=== PATIENT | female | born 1950 | race Caucasian/White ===

== ENCOUNTER → 2020-09-21 08:58 | Outpatient (CLI) | payer MEDICARE, SELFPAY ==
--- NOTE | ~2020-09-21 | CT_ITS ---
EXAMINATION: CT chest abdomen pelvis wo con EXAM DATE: 09/21/2020 09:22 INDICATION: R63.4 - Abnormal weight loss. Asthma. TECHNIQUE: Spiral CT of the chest, abdomen and pelvis was performed without contrast. Axial, hernandez l and sagittal images chest, abdomen and pelvis were reviewed. Coronal maximum intensity pixel image s of chest reviewed. The dose-length product (DLP) for this examination was 1143.46 mGy-cm. The exp osure was tailored according to patient size (auto mA exposure control), and iterative reconstruction (ASIR) was used as additional dose reduction technique. There is no prior study for comparison. FINDINGS: CHEST: Some scattered calcified and noncalcified nodules consistent with granulomas, up to about 3 m m in size. No suspicious pulmonary nodules. The ascending aorta measures 4.6 cm, mildly dilated. The re are no pleural or pericardial effusions. Tracheobronchial tree is patent. There is no mediasti nal, hilar or axillary lymphadenopathy. There is no pneumothorax. Heart normal in size. There i s mild coronary arterial calcification, arterial sclerosis. ABDOMEN PELVIS: The liver, spleen, adrenal glands and pancreas are unremarkable. Gallbladder is unre markable. No biliary obstruction. There is a punctate stone within each kidney. There is an exophyt ic 7 mm left renal hemorrhagic cyst. No hydronephrosis or ureteral stones. Calcifications in the pelv is are believed to be phleboliths. Hysterectomy versus atrophic uterus. The bladder is unremarkable . There is no retroperitoneal or pelvic lymphadenopathy. There is mild scattered arteriosclerotic disease. The appendix is not positively visualized. There is no pericecal inflammatory change to suggest appe ndicitis. The stomach and small bowel are unremarkable. There is expected amount of colonic stool. No free intraperitoneal gas. There are no osteoblastic or osteolytic lesions identified. IMPRESSION: 1. Mildly aneurysmal ascending aorta at 4.6 cm. 2. Punctate bilateral nephrolithiasis. 3. Lung granulomata. Reviewed, dictated and finalized at location A.
== END ==
PROVIDERS: PCP Internal Medicine; Visit Provider Internal Medicine
DX: R63.4 Abnormal weight loss (principal); I71.2 Thoracic aortic aneurysm, without rupture; N20.0 Calculus of kidney; J84.10 Pulmonary fibrosis, unspecified
CPT/HCPCS: 71250; 74176

== ENCOUNTER → 2020-11-24 10:50 | Outpatient (CLI) | payer MEDICARE, SELFPAY ==
--- NOTE | ~2020-11-24 | MR_ITS ---
EXAMINATION: MR shoulder RT wo con DATE: 11/24/2020 11:48 INDICATION: Right upper extremity pain TECHNIQUE: Magnetic resonance imaging (MRI) of the right shoulder was performed without intravenous c ontrast. Sequences included axial PD-weighted FS FSE, coronal oblique PD-weighted FS FSE, coronal obl ique T2-weighted FS FSE, sagittal PD-weighted FS FSE, and sagittal T1-weighted SE. COMPARISON: None. FINDINGS: Coracoacromial arch: The acromion undersurface is minimally curved in morphology (type I-II). There is mild thickening of the acromial side of the coracoacromial ligament. Moderate acromioclavicular osteoarthritis with smal l joint effusion. Rotator cuff: Complete tear of the supraspinatus and infraspinatus tendons along the superior and middle facet foot plates. 4.5 cm medial retraction of the torn supraspinatus tendon with the tear margin positioned lorna rick to the neck of the glenoid. Moderate fatty atrophy of the supraspinatus and infraspinatus muscle bellies. The teres minor tendon is normal. Mild to moderate subscapularis tendinopathy without discre te tear. Biceps tendon, glenoid labrum and glenohumeral cartilage: Moderate tendinopathy and likely longitudinal split tearing of the intra-articular and cephalad extra articular portion of the long head biceps tendon. Degenerative tearing of the superior to posterior superior glenoid labrum as well as of the anteroinferior labrum. Crescentic region of full/near full- thickness chondral ulceration along the anterior and superior margin of the glenoid with minimal unde rlying subarticular edema. Additional deep chondral ulceration along the apex of the humeral head wit h a couple additional tiny foci of subarticular edema. Fluid: Small glenohumeral joint effusion which extends through the full-thickness rotator cuff tear into the subacromial/subdeltoid bursa as well as with a small acromioclavicular joint effusion. No intra-mike cular loose osteochondral bodies. Small amount of fluid and synovitis in the long head biceps tendon sheath consistent with mild tenosynovitis. Bones/other: Normal marrow signal with no fracture or pathologic marrow replacing process. Mild cystic change at t he greater tuberosity. From anterior to posterior there are tears of the second and third of the 5 ma in deltoid tendon slips and partial tear of the deep portion of the adjacent muscle at the attenuated central portion of the proximal deltoid muscle. The tear occurs approximately 1.5 cm from the latera l acromial origin with approximately 2 cm distal retraction of the irregular tear margin. There is khanna rrounding muscular edema suggesting the tear is a relatively recent. IMPRESSION: 1. 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 2. Moderate glenohumeral osteoarthritis with labral degeneration. 3. Moderate tendinopathy and longitudinal split tearing of the long head biceps tendon. 4. Moderate acromioclavicular osteoarthritis. 5. Partial tear involving the deep aspect of the central component of the deltoid muscle and tendons with surrounding edema suggesting this is relatively recent.. Reviewed, dictated and finalized at location A. IMPRESSION: 1. Likely chronic full-thickness tear of the supraspinatus and infraspinatus te ndons with moderate secondary muscular fatty atrophy. 2. Moderate glenohumeral osteoarthritis with labral degeneration. 3. Moderate tendinopathy and longitudinal split tearing of the long head biceps tendon. 4. Moderate acromioclavicular osteoarthritis. 5. Partial tear involving the deep aspect of the central component of the delto id muscle and tendons with surrounding edema suggesting this is relatively
== END ==
PROVIDERS: PCP Internal Medicine; Visit Provider Physician Assistant Medical
DX: M79.621 Pain in right upper arm (principal); M75.101 Unspecified rotator cuff tear or rupture of right shoulder, not specified as traumatic; M19.011 Primary osteoarthritis, right shoulder; S46.811A Strain of other muscles, fascia and tendons at shoulder and upper arm level, right arm, initial encounter
CPT/HCPCS: 73221

== ENCOUNTER 2020-12-21 09:00 | Outpatient (RCR) | payer MEDICARE, SELFPAY ==
--- NOTE | 2020-11-23 11:56 | PTOPEVAL ---
INITIAL PHYSICAL THERAPY EVALUATION and PLAN OF CARE Thank you for referring Dipesh Russell to [facility].? Dipesh is scheduled to be seen for physical therapy? 2x/week for 4 weeks. Please review, sign, date and return this plan of care SERA. I agree with and certify that the following plan of care is medically necessary. Referring Physician Date Admitting Provider: Attending Provider: Ricardo López, MD Referring Provider: *PT Outpatient Evaluation Start: 11/23/20 10:24 Freq: Status: Active Protocol: Document 11/23/20 10:15 MAI (Rec: 11/23/20 11:43 MAI [id number]) Therapy Assessment Status Assessment Status Assessment Status Evaluation Outpatient Past Medical History Past Medical History Source of Past Medical History Patient Gastrointestinal History Hx Appendectomy Yes: 1969' Hx Cholecystectomy Yes: Musculoskeletal History Hx Arthritis Yes Endocrine History Hx Hypothyroidism Yes Hx Systemic Lupus Erythematosus Yes: 2017 Evaluation Information Problem Diagnosis R UE pain, R shoulder pain Onset ~ 3 wks Subjective Information Dipesh reports that she began Query Text:As Reported By Patient/ to have R shoulder pain - Family thought it was a flare up of her lupus. Wasn't able to get into rheumatology MD - came to Dr. López's office - received prednisone - then returned next week due to continuation of pain - had X ray - was told she had a tear. To have MRI tomorrow. Sleeping - lies on L side - uses pillow under R UE. Stiff in mornings - better after shower. Using ice on R shoulder. Working 2 days/wk - [employer] - avoiding lifting. 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 Home Meds Must Be Re-entered With Each Visit. Home Setting Home Type House,Single Level Environmental Barriers Ramp Living Situation Alone Comments Additional Prior Level of Function recreation - travel, going out Comments
--- NOTE | 2020-12-23 09:29 | PCPTNOTE ---
Patient cancelled scheduled appointment this date due to having to work. She cancelled this appointment 12/21/20.
--- NOTE | 2020-12-28 09:18 | PCPTNOTE ---
Patient called & cancelled scheduled appointment today and Saturday due to brother being place on hospice.
--- NOTE | 2021-01-16 09:22 | PCPTNOTE ---
PHYSICAL THERAPY DISCHARGE SUMMARY Admitting Provider: Attending Provider: Ricardo López, Patient:Dipesh Russell Date of :1950 Dipesh needed to cancel her last 2 appointments due to her brother going onto hospice. Follow up phone call was made today and she states that she is doing fine. Reinforced to her to continue with ROM activities to her R shoulder to maintain full motion - she was independent and compliant with her HEP. She was seen for 6 visits and did reach goals set. Thank you for referring Dipesh to [facility]. Please review, sign, date and return this discharge summary SERA. I have been updated about Dipesh's current status and I agree with discharge from the above service at this time. Referring Physician Date
== END 2021-01-16 15:59 | disposition home or self-care (01) ==
LOC: ANHHIPT 09:00
PROVIDERS: PCP Internal Medicine; Visit Provider Internal Medicine
DX: M79.604 Pain in right leg (principal); M25.511 Pain in right shoulder
CPT/HCPCS: 97110; 97140; 97162

== ENCOUNTER 2023-01-30 11:58 | Outpatient (CLI) | payer MEDICARE, SELFPAY ==
[2023-01-30 12:44] LABS: Hematocrit 39.5 % (37.0-47.0); Hemoglobin 12.7 g/dL (12.0-15.0); Mean Corpuscular HGB Conc 32.2 g/dl (32-36); Mean Corpuscular Hemoglobin 32.7 pg (26-34); Mean Corpuscular Volume 101.8 fl (80-100); Mean Platelet Volume 10.6 fl (7.4-10.4); Platelet Count Result 192 k/mm3 (150-375); Red Blood Count 3.88 M/mm3 (4.2-5.4); Red Cell Distribution Width 14.3 % (11.5-14.5); White Blood Count 4.4 K/mm3 (4.5-10.0)
[2023-01-30 12:48] LABS: Appearance Urine Clear (Clear); Bacteria Urine None Seen /hpf; Bilirubin Urine Negative (Negative); Blood Urine Negative (Negative); Color Urine Yellow (Yellow); Glucose Urine UA Negative (Negative); Ketones Urine Negative (Negative); Leukocyte Esterase Ur Trace LEU/UL (Negative); Nitrate Urine Negative (Negative); Non Pathogenic Casts 0-2; Protein Urine Negative (Negative); RBC Urine 0-2 /hpf (0-2); Specific Grav Ur 1.012 (1.001-1.035); Squamous Epithelial Cell Urine None seen /hpf (Few); WBC Urine 0-5 /hpf; pH Urine 6.5 (5.0-9.0)
[2023-01-30 12:54] LABS: Add Urine Microscopic? YES
[2023-01-30 13:03] LABS: Alanine Aminotransferase 18 U/L (6-35); Albumin Level 4.1 g/dL (3.5-5.1); Alkaline Phosphatase 67 U/L (38-126); Anion Gap 8 mmol/L (8-16); Aspartate Amino Transferase 26 U/L (14-36); Bilirubin,Total 0.7 mg/dL (0.2-1.3); Blood Urea Nitrogen 19 mg/dL (7-17); CRP < 0.5 mg/dL (<1.0); Calcium 8.8 mg/dL (8.4-10.2); Carbon Dioxide 22 mmol/L (22-30); Chloride 111 mmol/L (98-107); Estimated Glomerular Filt Rate > 60; Glucose 121 mg/dL (65-110); Sodium 141 mmol/L (137-145)
[2023-01-30 13:17] LABS: Erythrocyte Sedimentation Rate 15 mm/hr (0-20)
== END 2023-01-30 11:59 | disposition home or self-care (01) ==
LOC: ANHLAB 12:03
PROVIDERS: PCP Physician Assistant Medical; Visit Provider Internal Medicine
DX: M32.9 Systemic lupus erythematosus, unspecified (principal); M19.90 Unspecified osteoarthritis, unspecified site; R89.9 Unspecified abnormal finding in specimens from other organs, systems and tissues
CPT/HCPCS: 36415; 80053; 81001; 85027; 85652; 86140; 96365; 96375; 99202; A9270; G0463; J0491; J1200; J2930

== ENCOUNTER 2023-03-27 11:05 | Outpatient (CLI) | payer MEDICARE, SELFPAY ==
[2023-03-27 11:40] LABS: Hematocrit 41.1 % (37.0-47.0); Hemoglobin 13.4 g/dL (12.0-15.0); Mean Corpuscular HGB Conc 32.6 g/dl (32-36); Mean Corpuscular Hemoglobin 32.6 pg (26-34); Mean Platelet Volume 10.3 fl (7.4-10.4); Platelet Count Result 207 k/mm3 (150-375); Red Blood Count 4.11 M/mm3 (4.2-5.4); Red Cell Distribution Width 14.4 % (11.5-14.5); White Blood Count 5.6 K/mm3 (4.5-10.0)
[2023-03-27 11:43] LABS: Appearance Urine Clear (Clear); Bilirubin Urine Negative (Negative); Blood Urine Negative (Negative); Color Urine Yellow (Yellow); Glucose Urine UA Negative (Negative); Ketones Urine Negative (Negative); Leukocyte Esterase Ur Negative LEU/UL (Negative); Nitrate Urine Negative (Negative); Protein Urine Negative (Negative); Specific Grav Ur 1.018 (1.001-1.035)
[2023-03-27 11:45] LABS: Add Urine Microscopic? NO
[2023-03-27 11:51] LABS: Alanine Aminotransferase 16 U/L (6-35); Albumin Level 4.1 g/dL (3.5-5.1); Alkaline Phosphatase 63 U/L (38-126); Anion Gap 6 mmol/L (8-16); Aspartate Amino Transferase 24 U/L (14-36); Bilirubin,Total 0.6 mg/dL (0.2-1.3); Blood Urea Nitrogen 26 mg/dL (7-17); Calcium 9.1 mg/dL (8.4-10.2); Carbon Dioxide 20 mmol/L (22-30); Chloride 110 mmol/L (98-107); Estimated Glomerular Filt Rate > 60; Glucose 76 mg/dL (65-110); Potassium 3.8 mmol/L (3.4-5.0); Sodium 136 mmol/L (137-145)
[2023-03-27 14:21] LABS: Erythrocyte Sedimentation Rate 8 mm/hr (0-20)
[2023-03-27 21:19] LABS: Hepatitis B Surface Antigen Negative (Negative)
[2023-03-29 13:29] LABS: NIL 0.05 IU/mL; Quantiferon TB Plus, 1T NEGATIVE (NEGATIVE); TB1-NIL 0.01 IU/mL; TB2-NIL 0.05 IU/mL
== END 2023-03-27 11:06 | disposition home or self-care (01) ==
LOC: ANHLAB 11:10
PROVIDERS: PCP Physician Assistant Medical; Visit Provider Internal Medicine
DX: M32.9 Systemic lupus erythematosus, unspecified (principal)
CPT/HCPCS: 36415; 80053; 81003; 85027; 85652; 86480; 87340

== ENCOUNTER 2023-06-05 13:07 | Outpatient (CLI) | payer MEDICARE, SELFPAY ==
[2023-06-05 13:38] LABS: Hematocrit 41.5 % (37.0-47.0); Hemoglobin 13.1 g/dL (12.0-15.0); Mean Corpuscular HGB Conc 31.6 g/dl (32-36); Mean Corpuscular Hemoglobin 32.8 pg (26-34); Mean Platelet Volume 10.3 fl (7.4-10.4); Platelet Count Result 215 k/mm3 (150-375); Red Blood Count 3.99 M/mm3 (4.2-5.4); White Blood Count 4.7 K/mm3 (4.5-10.0)
[2023-06-05 13:44] LABS: Appearance Urine Clear (Clear); Bacteria Urine None Seen /hpf; Bilirubin Urine Negative (Negative); Blood Urine Negative (Negative); Color Urine Yellow (Yellow); Glucose Urine UA Negative (Negative); Ketones Urine Negative (Negative); Leukocyte Esterase Ur Negative LEU/UL (Negative); Nitrate Urine Negative (Negative); Non Pathogenic Casts 0-2; Protein Urine Trace mg/dL (Negative); RBC Urine 0-2 /hpf (0-2); Specific Grav Ur 1.021 (1.001-1.035); Squamous Epithelial Cell Urine None seen /hpf (Few); WBC Urine 0-5 /hpf; pH Urine 5.5 (5.0-9.0)
[2023-06-05 13:49] LABS: Add Urine Microscopic? YES
[2023-06-05 13:51] LABS: Alanine Aminotransferase 16 U/L (6-35); Albumin Level 4.1 g/dL (3.5-5.1); Alkaline Phosphatase 72 U/L (38-126); Anion Gap 8 mmol/L (8-16); Aspartate Amino Transferase 26 U/L (14-36); Bilirubin,Total 0.9 mg/dL (0.2-1.3); Blood Urea Nitrogen 19 mg/dL (7-17); CRP < 0.5 mg/dL (<1.0); Carbon Dioxide 24 mmol/L (22-30); Chloride 104 mmol/L (98-107); Estimated Glomerular Filt Rate > 60; Glucose 97 mg/dL (65-110); Potassium 3.8 mmol/L (3.4-5.0); Sodium 136 mmol/L (137-145)
[2023-06-05 14:45] LABS: Erythrocyte Sedimentation Rate 13 mm/hr (0-20)
== END 2023-06-05 13:08 | disposition home or self-care (01) ==
PROVIDERS: PCP Physician Assistant Medical; Visit Provider Internal Medicine
DX: M32.9 Systemic lupus erythematosus, unspecified (principal); M19.90 Unspecified osteoarthritis, unspecified site; R89.9 Unspecified abnormal finding in specimens from other organs, systems and tissues
CPT/HCPCS: 36415; 80053; 81001; 85027; 85652; 86140; 96365; 96375; 99212; A9270; G0463; J0491; J2930

== ENCOUNTER 2023-08-01 12:19 | Outpatient (CLI) | payer MEDICARE, SELFPAY ==
[2023-08-01 13:11] LABS: Hematocrit 42.7 % (37.0-47.0); Hemoglobin 13.5 g/dL (12.0-15.0); Mean Corpuscular HGB Conc 31.6 g/dl (32-36); Mean Corpuscular Hemoglobin 32.2 pg (26-34); Mean Corpuscular Volume 101.9 fl (80-100); Mean Platelet Volume 10.9 fl (7.4-10.4); Platelet Count Result 218 k/mm3 (150-375); Red Blood Count 4.19 M/mm3 (4.2-5.4); Red Cell Distribution Width 14.7 % (11.5-14.5); White Blood Count 4.9 K/mm3 (4.5-10.0)
[2023-08-01 13:13] LABS: Appearance Urine Clear (Clear); Bilirubin Urine Negative (Negative); Blood Urine Negative (Negative); Color Urine Yellow (Yellow); Glucose Urine UA Negative (Negative); Ketones Urine Negative (Negative); Leukocyte Esterase Ur Negative LEU/UL (Negative); Nitrate Urine Negative (Negative); Protein Urine Negative (Negative); Specific Grav Ur 1.013 (1.001-1.035); pH Urine 6.5 (5.0-9.0)
[2023-08-01 13:20] LABS: Add Urine Microscopic? NO
[2023-08-01 13:23] LABS: Alanine Aminotransferase 17 U/L (6-35); Albumin Level 4.3 g/dL (3.5-5.1); Alkaline Phosphatase 83 U/L (38-126); Anion Gap 6 mmol/L (8-16); Aspartate Amino Transferase 28 U/L (14-36); Bilirubin,Total 0.7 mg/dL (0.2-1.3); Blood Urea Nitrogen 14 mg/dL (7-17); Calcium 9.3 mg/dL (8.4-10.2); Carbon Dioxide 27 mmol/L (22-30); Chloride 106 mmol/L (98-107); Estimated Glomerular Filt Rate > 60; Glucose 95 mg/dL (65-110); Potassium 3.6 mmol/L (3.4-5.0); Sodium 139 mmol/L (137-145)
[2023-08-01 13:49] LABS: Erythrocyte Sedimentation Rate 13 mm/hr (0-20)
== END 2023-08-01 12:20 | disposition home or self-care (01) ==
PROVIDERS: PCP Physician Assistant Medical; Visit Provider Internal Medicine
DX: M32.9 Systemic lupus erythematosus, unspecified (principal)
CPT/HCPCS: 36415; 80053; 81003; 85027; 85652; 96365; 96375; 99212; A9270; G0463; J0491; J2930

== ENCOUNTER 2023-09-26 12:34 | Outpatient (CLI) | payer MEDICARE, SELFPAY ==
[2023-09-26 13:05] LABS: Hematocrit 41.8 % (37.0-47.0); Hemoglobin 13.4 g/dL (12.0-15.0); Mean Corpuscular HGB Conc 32.1 g/dl (32-36); Mean Corpuscular Hemoglobin 32.8 pg (26-34); Mean Corpuscular Volume 102.2 fl (80-100); Platelet Count Result 210 k/mm3 (150-375); Red Blood Count 4.09 M/mm3 (4.2-5.4); Red Cell Distribution Width 15.4 % (11.5-14.5); White Blood Count 4.8 K/mm3 (4.5-10.0)
[2023-09-26 13:12] LABS: Appearance Urine Clear (Clear); Bacteria Urine None Seen /hpf; Bilirubin Urine Negative (Negative); Blood Urine Negative (Negative); Color Urine Yellow (Yellow); Glucose Urine UA Negative (Negative); Ketones Urine Negative (Negative); Leukocyte Esterase Ur Trace LEU/UL (Negative); Nitrate Urine Negative (Negative); Non Pathogenic Casts 0-2; Protein Urine Negative (Negative); RBC Urine 0-2 /hpf (0-2); Specific Grav Ur 1.015 (1.001-1.035); Squamous Epithelial Cell Urine None Seen /hpf (Few); WBC Urine 0-5 /hpf (0-3); pH Urine 6.5 (5.0-9.0)
[2023-09-26 13:18] LABS: Add Urine Microscopic? YES
[2023-09-26 13:30] LABS: Alanine Aminotransferase 15 U/L (6-35); Albumin Level 4.2 g/dL (3.5-5.1); Alkaline Phosphatase 82 U/L (38-126); Anion Gap 6 mmol/L (4-12); Aspartate Amino Transferase 26 U/L (14-36); Bilirubin,Total 0.6 mg/dL (0.2-1.3); Blood Urea Nitrogen 20 mg/dL (7-17); CRP < 0.5 mg/dL (<1.0); Calcium 9.1 mg/dL (8.4-10.2); Carbon Dioxide 23 mmol/L (22-30); Chloride 111 mmol/L (98-107); Estimated Glomerular Filt Rate > 60; Glucose 105 mg/dL (65-110); Sodium 140 mmol/L (137-145)
[2023-09-26 13:42] LABS: Erythrocyte Sedimentation Rate 9 mm/hr (0-20)
== END 2023-09-26 12:35 | disposition home or self-care (01) ==
PROVIDERS: PCP Physician Assistant Medical; Visit Provider Internal Medicine
DX: M19.90 Unspecified osteoarthritis, unspecified site (principal); M32.9 Systemic lupus erythematosus, unspecified
CPT/HCPCS: 36415; 80053; 81001; 85027; 85652; 86140; 96365; 96375; 99212; A9270; G0463; J0491; J2919

== ENCOUNTER 2024-05-28 09:26 | Emergency (ER) | payer MEDICARE, SELFPAY ==
[2024-05-28 09:37] VITALS: BP 151/89; PULSE 76; RESP 20; TEMP 36.2; O2SAT 100
--- NOTE | 2024-05-28 09:37 | ED.FEMALEGU ---
HPI - Female Genitourinary General Chief complaint: Urogenital-Female Stated complaint: uti symptoms Time Seen by Provider: 05/28/24 09:37 Source: patient, RN notes reviewed and old records reviewed Mode of arrival: ambulatory Limitations: no limitations History of Present Illness HPI Narrative: patient presents with complaints of 3 days of urinary hesitancy. She denies any fever, chills, sweats. She denies any injury or trauma. She denies any outright dysuria, but states she feels as though she has to urinate and then has difficulty doing so. She voices no other concerns or complaints today Related Data Home Medications ?Medication ?Instructions ?Recorded ?Confirmed ?Last Taken ?Type folic acid 1 mg tablet 1 mg PO DAILY 03/11/24 05/15/24 Unknown History methotrexate sodium 2.5 mg tablet 2.5 mg PO WEEKLY 03/11/24 05/15/24 Unknown History Allergies Allergy/AdvReac Type Severity Reaction Status Date / Time No Known Allergies Allergy Verified 05/28/24 09:31 Review of Systems Review of Systems: All systems reviewed & are unremarkable except as noted in HPI and below Constitutional: Constitutional: Reports no additional constitutional complaints ENT: Reports system reviewed and no additional complaints, except as documented Cardiovascular: Cardiovascular: Reports no additional cardiovascular complaints Respiratory: Respiratory: Reports no additional respiratory complaints Gastrointestinal: Gastrointestinal: Reports no additional gastrointestinal complaints Genitourinary: Genitourinary: Reports no additional female genitourinary complaints, Reports as per HPI and Reports urinary hesitancy PMFSH Past Medical History Medical History Hypothyroidism Knee osteoarthritis Hair loss Rheumatoid arthritis Arthritis Osteoporosis Rotator cuff tear, right Unintentional weight loss Lupus (systemic lupus erythematosus) Right rotator cuff tendonitis (~02/2020) Tendinitis of left rotator cuff Vitamin D deficiency Generalized osteoarthritis of multiple sites Asthma Surgical History Surgical History History of cholecystectomy Family History Family History Father Patient's father is Family history of malignant neoplasm of urinary bladder Sibling Cerebrovascular accident, Onset Age: 64 Mother Family history of throat cancer Other Arthritis Heart disease Hypertension Kidney disorder Neuropathy Social History Social History Smoking packs per day: 0.5 Smoking cigarettes per day: 10.0 Years smoked: 55 Smoking pack-years: 27.50 Smoking status: Current some day smoker Tobacco type: cigarettes Alcohol intake: never Substance use: never Substance use type: does not use Living arrangements: alone Occupation/Education: retired Gender identity (if verbalized by the patient): Female Spiritual care concerns: No Agree to blood products: Yes Comments At the time of my signature, I reviewed and agree with the nursing past medical, surgical, social, and family history. There is no relevant family history pertinent to the patient complaint. Exam Const: General: cooperative, no acute distress, alert and awake Orientation/consciousness: oriented to person, oriented to place and oriented to time HENMT: Head: normal to inspection Mouth: Yes moist mucous membranes Resp: Effort & Inspection: normal respiratory effort and able to speak in complete sentences Auscultation: clear to auscultation bilaterally, no crackles, no rales, no rhonchi and no wheezes Cardio: Palpation: normal PMI Rate: regular rate Rhythm: regular rhythm Heart sounds: S1 normal heart sound present and S2 normal heart sound present : General: Yes no CVA tenderness Neuro: General: oriented to person, oriented to place and oriented to time Cranial nerves: Yes CN's II-XII intact bilaterally Psych: Appearance: grossly normal Thought process: Normal thought process present Insight: Good insight present (Psych) Judgement: Good judgement present (Psych) Course Course Level of Care: Express Care Visit Vital Signs Vital signs: Reviewed MDM - Female Genitourinary MDM Narrative Medical decision making narrative: urine without any signs of infection. Patient encouraged to increase water intake. Follow with primary care provider. Emergency department for new or worse symptoms. Discharge instructions reviewed with patient, as well as provided in writing per nursing staff. The instructions also include specific and strict return/GO TO THE ER as well as f/u information. All questions have been answered, and the patient deny any further questions with discharge and discharge plan. Some parts of this dictation were generated by voice recognition software and may contain typographical and/or grammatical inaccuracies. Differential Diagnosis Differential diagnosis: Likely urinary tract infection and cystitis Medical Records Attestation: I reviewed the patient's medical records. Lab Data Attestation: I reviewed the patient's lab results. Discharge Plan Discharge Clinical Impression: Dysuria Patient Disposition: Home, Self-Care Condition: Stable Instructions: Antibiotic Form, Dysuria (ED) Additional Instructions: make sure that your drinking at least 64 oz of water every day. Follow with primary care provider. Emergency department for new or worse symptoms Patient Language: Nepalese Prescriptions: No Action methotrexate sodium 2.5 mg tablet 2.5 mg PO WEEKLY Rx Instructions: managed by RHEUM folic acid 1 mg tablet 1 mg PO DAILY albuterol sulfate [ProAir HFA] 90 mcg/actuation HFA aerosol inhaler 2 puff INHALATION Q4H PRN (Reason: Shortness Of Breath) Qty: 6.7 0RF hydroxychloroquine [Plaquenil] 200 mg tablet 400 mg PO DAILY Qty: 180 1RF prednisone 20 mg tablet 20 mg PO DAILY Qty: 5 0RF levothyroxine 112 mcg tablet 112 mcg PO DAILY Qty: 90 0RF losartan 50 mg tablet 50 mg PO DAILY Qty: 90 1RF Follow-up/Referrals: Demetra Etienne PA-C [Primary Care Provider] - 1 Week Time of Disposition: 09:51
[2024-05-28 09:48] LABS: EDUAAPPEAR Clear; EDUABILI Negative (Negative); EDUABLOOD Negative (Negative); EDUACOLOR1 Dark; EDUAGLUCOSE Negative (Negative); EDUAKETONE Negative (Negative); EDUALEUKO Negative (Negative); EDUANITRATE Negative (Negative); EDUAPROTEIN Trace (Negative); EDUAUROBILI 0.2
--- OUTSIDE RECORDS SUMMARY | 2024-06-04 20:40 | XMS_ITS | Encounter Summary ---
Author Organization [facility] Address [address] [place] [address]. [place] [address] [place] [address] Care Team Providers Care Alteration Tailor Name Role Phone Unavailable Primary Care Provider Unavailabl e Encounter Details Date Type Department Care Team (Latest Contact Info) Description 07/21/2012 Abstract [facility] Flory Myrna L, DO [address] [place] [address] Social History Tobacco Use Types Packs/Day Years Used Date Smoking Tobacco: Never Assessed Comments Unknown Sex and Gender Information Value Date Recorded Sex Assigned at Not on file Legal Sex Female 7:07 PM CDT Gender Identity Not on file Sexual Orientation Not on file documented as of this encounter Last Filed Vital Signs Vital Sign Reading Time Taken Comments Blood Pressure 124/76 07/21/2012 4:56 PM [facility] Pulse 90 07/21/2012 4:56 PM [facility] Temperature - - Respiratory Rate - - Oxygen Saturation - - Inhaled Oxygen Concentration - - Weight 108.4 kg (239 lb) 07/21/2012 4:56 PM [facility] Height - - Body Mass Index - - documented in this encounter Progress Notes * Nisha Gilmore, COLEEN - 07/21/2012 4:45 PM CST Reason For Visit Acute Visit Chief Complaint 1. Cold Symptoms pt presents with c/o onset Saturday c/o fever, fatigue, BEGUM, swollen lymphnodes in neck, upset stomach, prod. cough History of Present Illness Pt c/o fever up to 103, productive cough for green sputum, headache, fatigue, and swollen lymph nodes in her neck x 2 days. Last took tylenol at 1600 Review of Systems See HPI for pertinent positives. Social History ?? Current Smoker 305.1 Current Meds 1. No Reported Medications Recorded; Record; Last Updated By: Jj Sebastian Allergies 1. No Known Drug Allergies No Known Drug Allergies Vitals Signs [Data Includes: Current Encounter] 21Jul2012 04:56PM Temperature: 98.1 F Heart Rate: 90 Respiration: 20 Systolic: 124 Diastolic: 76 O2 Saturation: 96 Weight: 239 lb Physical Exam Constitutional: no acute distress, well appearing and well nourished. Head/Face: normal and no sinus tenderness. Eyes: conjunctiva and lids with no swelling, erythema or discharge. ENT: nasal discharge and nasal erythema, but translucent with normal light reflex and canals patentwithout erythema, nasal mucosa, septum, and turbinates normal without edema or erythema and normal oropharynx without erythema, edema, exudate, or lesions. Pulmonary: wheezing and Rt side inspiratory wheezes, improved air exchange after neb tx, no furtherwheezes, but no increased work of breathing or signs of respiratory distress. Cardiovascular: normal rate and rhythm, normal S1 and S2, without murmurs. Lymphatic: anterior chain tenderness and enlarged anterior chain. Psychiatric: oriented to person, place, and time and mood and affect normal. Assessment 1. Fever (Symptom) 780.60 2. Wheezing (Symptom) 786.07 3. Acute Bronchitis 466.0 Flu negative Plan 1. *Influenza A and B In Office Done: [id number] Ordered; For: Fever (Symptom) (780.60); Ordered By: Tami Gilmore Perform: In Office; Last Updated By: Louann Fall 2. Ipratropium-Albuterol 0.5-2.5 (3) MG/3ML Inhalation Solution; USE 1 UNIT DOSE IN NEBULIZER 4 TIMES DAILY; To Be Done: [id number]; Status: HOLD FOR - Administration Ordered; For: Fever (Symptom) (780.60), Wheezing (Symptom) (786.07); Rx By: Tami Gilmore; Request Administration 3. Azithromycin 250 MG Oral Tablet; TAKE 2 TABLETS ON DAY 1 THEN TAKE 1 TABLET A DAY FOR 4 DAYS; Therapy: to (Evaluate:26Jul2012); Last Rx:[id number] Ordered; For: Wheezing (Symptom) (786.07); Rx By: Tami Gilmore; Dispense: 5 Days ; #:6 Tablet; Refill: 0; Send To: [facility] 4. Ibuprofen 600 MG Oral Tablet; TAKE 1 TABLET EVERY 6 HOURS NEEDED; Therapy: to (Evaluate:29Jul2012); Last Rx:[id number] Ordered; For: Wheezing (Symptom) (786.07); Rx By: Tami Gilmore; Dispense: 8 Days ; #:30 Tablet; Refill: 0; Send To: [facility] 5. Mucinex 600 MG Oral Tablet Extended Release 12 Hour; TAKE 2 TABLETS TWICE DAILY NEEDED; Therapy: to (Evaluate:31Jul2012); Last Rx:[id number] Ordered; For: Wheezing (Symptom) (786.07); Rx By: Tami Gilmore; Dispense: 10 Days ; #:40 Tablet Extended Release 12 Hour; Refill: 0; Record 6. PredniSONE 50 MG Oral Tablet; TAKE 1 TABLET DAILY DIRECTED; Therapy: to (Evaluate:26Jul2012); Last Rx:[id number] Ordered; For: Wheezing (Symptom) (786.07); Rx By: Tami Gilmore; Dispense: 5 Days ; #:5 Tablet; Refill: 0; Send To: [facility] If no better in 2-3 days see your primary doctor, use the ibuprofen for fever or body aches. Finishthe antibioitis as prescribed. Signatures Electronically signed by : Tami Gilmore NP; Jul 21 2012 5:26PM (Author) DRIER documented in this encounter Plan of Treatment Not on file documented as of this encounter Visit Diagnoses Not on filedocumented in this encounter
--- OUTSIDE RECORDS SUMMARY | 2024-06-04 20:40 | XMS_ITS | Encounter Summary ---
Author Organization [facility] Address [address] [place] [address]. [place], [place] [address] [place] [address] Care Team Providers Care Ell Teacher Name Role Phone Unavailable Primary Care Provider Unavailabl e Encounter Details Date Type Department Care Team (Latest Contact Info) Description 07/28/2020 9:43 AM NAIL STICKER - 07/28/2020 11:59 PM NAIL STICKER Hospital Encounter [facility] [address] [place] [address] Tom Ugarte MD [address] [place] [address] Discharge Disposition: Home or Self Care (Routine Discharge) Social History Tobacco Use Types Packs/Day Years Used Date Smoking Tobacco: Never Assessed Comments Unknown Sex and Gender Information Value Date Recorded Sex Assigned at Not on file Legal Sex Female 7:07 PM CDT Gender Identity Not on file Sexual Orientation Not on file COVID-19 Exposure Response Date Recorded In the last month, have you been in contact with someone who was confirmed or suspected to have Coronavirus / COVID-19? No / Unsure 07/28/2020 9:42 AM NAIL STICKER documented as of this encounter Plan of Treatment Not on file documented as of this encounter Visit Diagnoses Diagnosis Need for prophylactic vaccination against viral disease- Primary Need for prophylactic vaccination and inoculation against other viral diseases documented in this encounter
--- OUTSIDE RECORDS SUMMARY | 2024-06-04 20:40 | XMS_ITS | Encounter Summary ---
Author Organization [facility] Address [address] [place] [address]. [place], [place] [address] [place] [address] Care Team Providers Care Porcelain Slusher Name Role Phone Unavailable Primary Care Provider Unavailabl e Encounter Details Date Type Department Care Team (Late st Contact Info) Description 06/28/2020 Orders Only [facility] Covid Vaccination Invitation [place] [phone] Pacheco Mckinney MD Social History Tobacco Use Types Packs/Day Years [...] have Coronavirus / COVID-19? No / Unsure 06/30/2020 12:55 PM CARE PROFESSIONALS documented as of this encounter Plan of Treatment Not on file documented as of this encounter Visit Diagnoses Not on filedocumented in this encounter
--- OUTSIDE RECORDS SUMMARY | 2024-06-04 20:40 | XMS_ITS | Clinical Summary ---
Author Organization [facility] Address [address] [place] [address]. [place], [place] [address] [place] [address] Care Team Providers Care Space Technologist Name Role Phone Unavailable Primary Care Provider Unavailabl e Active Problems Problem Noted Date Diagnosed Date Systemic lupus erythematosus ([facility]) 0 10/11/2023 Immunizations Name Administration Dates Next Due MODERNA COVID-19 (12+) MRNA, LNP-S, PF, 100 MCG/ 0.5 ML DOSE 07/28/2020,06/30/2020 Social History Tobacco Use Types Packs/Day Years Used Date Smoking Tobacco: Never Assessed Comments Unknown Sex and Gender Information Value Date Recorded Sex Assigned at Not on file Legal Sex Female 7:07 PM CDT Gender Identity Not on file Sexual Orientation Not on file Last Filed Vital Signs Vital Sign Reading Time Taken Comments Blood Pressure 124/76 07/21/2012 4:56 PM SERVER ASSISTANT Pulse 90 07/21/2012 4:56 PM SERVER ASSISTANT Temperature - - Respiratory Rate - - Oxygen Saturation - - Inhaled Oxygen Concentration - - Weight 108.4 kg (239 lb) 07/21/2012 4:56 PM SERVER ASSISTANT Height - - Body Mass Index - - Plan of Treatment Health Maintenance Due Date Last Done Comments Colorectal Cancer Screening Colonoscopy (10 Years) 1950 Hepatitis C 12/06/1969 DTaP, Tdap and Td Vaccines ( 1 - Tdap) 12/06/1970 Mammogram Screening 1991 Zoster Vaccines (1 of 2) 12/06/2001 Annual Medicare Wellness Visit 12/06/2016 Dexa Scan (General) 12/06/2016 Pneumococcal Vaccine: 65+ Years (1 of 1 - PCV) 12/06/2016 COVID-19 Vaccine ( - 2023-2 5 season) 2024 07/28/2020, 06/30/2020 Influenza Adult (#1) 2024 RSV Immunization or 60+ Years (1 - 1-dose 75+ series) 12/06/2026 Meningococcal Vaccine Aged Out No fabian dev eligible based on patient's age to complete this topic RSV Immunizations Under 20 Months Aged Out No longer eligible b ased on patient's age to complete this topic Insurance MEDICARE
--- OUTSIDE RECORDS SUMMARY | 2024-06-04 20:40 | XMS_ITS | Encounter Summary ---
Author Organization [facility] Address [address] [place] [address]. [place], [place] [address] [place] [address] Care Team Providers Care Surgical Services Manager Name Role Phone Unavailable Primary Care Provider Unavailabl e Encounter Details Date Type Department Care Team (Late st Contact Info) Description 07/25/[address] [facility] [address] [place], [place] [id number] Demetra Etienne PA [address] [place], [place] [id number] Social History Tobacco Use Types Packs/Day Years Used Date Smoking Tobacco: Never Assessed Comments Unknown Sex and Gender Information Value Date Recorded Sex Assigned at Not on file Legal Sex Female 7:07 PM CDT Gender Identity Not on file Sexual Orientation Not on file documented as of this encounter Plan of Treatment Not on file documented as of this encounter Visit Diagnoses Diagnosis Pain of right upper arm Pain in limb documented in this encounter
--- OUTSIDE RECORDS SUMMARY | 2024-06-04 20:40 | XMS_ITS | Encounter Summary ---
Author Organization [facility] Address [address] [place] [address]. [place], [place] [address] [place] [address] Care Team Providers Care Proof Machine Operator Name Role Phone Unavailable Primary Care Provider Unavailabl e Encounter Details Date Type Department Care Team (Latest Contact Info) Description 06/30/2020 12:58 PM HAND TRUCKER - 06/30/2020 11:59 PM HAND TRUCKER Hospital Encounter [facility] [address] [place] [address] Tom Ugarte MD [address] [place] [address] Discharge Disposition: Home or Self Care (Routine [...] COVID-19? No / Unsure 06/30/2020 12:55 PM HAND TRUCKER documented as of this encounter Plan of Treatment Not on file documented as of this encounter Visit Diagnoses Diagnosis Need for prophylactic vaccination against viral disease- Primary Need for prophylactic vaccination and inoculation against other viral diseases documented in this encounter
--- OUTSIDE RECORDS SUMMARY | 2024-06-04 20:40 | XMS_ITS | Encounter Summary ---
Author Organization [facility] Address [address] [place] [address]. [place], [place] [address] [place], [place] [address] Care Team Providers Care Professor Of Journalism Name Role Phone Unavailable Primary Care Provider Unavailabl e Encounter Details Date Type Department Care Team (Late st Contact Info) Description 11/19/2005 Abstract [facility] [address] [place] [address] , Racheal Acevedo MD Social History Tobacco Use Types Packs/Day [...] COVID-19? No / Unsure 07/28/2020 9:42 AM FRUIT AND VEGETABLE PARER documented as of this encounter Plan of Treatment Not on file documented as of this encounter Visit Diagnoses Not on filedocumented in this encounter
--- OUTSIDE RECORDS SUMMARY | 2024-06-04 20:40 | XMS_ITS | Encounter Summary ---
Author Organization [facility] Address [address] [place] [address]. [place], [place] [address] [place] [address] Care Team Providers Care Senior Mechanical Engineer Name Role Phone Unavailable Primary Care Provider Unavailabl e Reason for Visit * Reason Onset Date Comments Orders 01/17/2024 Saphnelo IV orde r Encounter Details Date Type Department Care Team (Late st Contact Info) Description 01/17/2024 Telephone [facility] [address] [place] [address] Jordi Zhang MD [address] [place] [address] Orders (Saphnelo IV order) Social History Tobacco Use Types Packs/Day Years Used Date Smoking Tobacco: Never Assessed Comments Unknown Sex and Gender Information Value Date Recorded Sex Assigned at Not on file Legal Sex Female 7:07 PM CDT Gender Identity Not on file Sexual Orientation Not on file documented as of this encounter Progress Notes * Anali Haas RN - 01/17/2024 1:45 PM CDT Multiple calls attempted since October to reach pt's office. Dr[facility]. New location was to be in effect around Dec 2023 - given new # by another pt of [phone] and sent fax 01/09 to clarify the new location to ensure new office location, but no return from office . Since no response will be unable to fulfill this order until office contacts our dept. Therapy plan removed. Have left message with answering service for office to contact us w/o any response documented in this encounter Plan of Treatment Not on file documented as of this encounter Visit Diagnoses Not on filedocumented in this encounter
--- OUTSIDE RECORDS SUMMARY | 2024-06-04 20:40 | XMS_ITS | Encounter Summary ---
Author Organization [facility] Address [address] [place] [address]. [place], [place] [address] [place] [address] Care Team Providers Care Baby Attendant Name Role Phone Unavailable Primary Care Provider Unavailabl e Encounter Details Date Type Department Care Team (Late st Contact Info) Description 10/11/2023 Therapy Plan [facility] [address] [place] [address] Jordi Zhang MD [address] [place] [address] Social History Tobacco Use Types Packs/Day Years Used Date Smoking Tobacco: Never Assessed Comments Unknown Sex and Gender Information Value Date Recorded Sex Assigned at Not on file Legal Sex Female 7:07 PM CDT Gender Identity Not on file Sexual Orientation Not on file documented as of this encounter Plan of Treatment Not on file documented as of this encounter Visit Diagnoses Diagnosis Systemic lupus erythematosus ([facility]/H[facility]/HCC)- Primary Systemic lupus erythematosus documented in this encounter
--- OUTSIDE RECORDS SUMMARY | 2024-06-04 20:40 | XMS_ITS | Encounter Summary ---
Author Organization [facility] Address [address] [place] [address]. [place] [address] Care Team Providers Care Clinical Orthoptist Name Role Phone Unavailable Primary Care Provider Unavailabl e Encounter Details Date Type Department Care Team (Latest Contact Info) Description 06/30/2020 Travel Social History Tobacco Use Types Packs/Day Years [...] COVID-19? No / Unsure 06/30/2020 12:55 PM ASSAULT BOAT [place] documented as of this encounter Plan of Treatment Not on file documented as of this encounter Visit Diagnoses Not on filedocumented in this encounter
--- OUTSIDE RECORDS SUMMARY | 2024-06-04 20:40 | XMS_ITS | Encounter Summary ---
Author Organization [facility] Address [address] [place] [address]. [place] [address] [place] [address] Care Team Providers Care Substation Maintenance Technician Name Role Phone Unavailable Primary Care Provider Unavailabl e Encounter Details Date Type Department Care Team (Late st Contact Info) Description 10/15/2023 Orders Only [facility] [address] [place] [address] Erwin Macdonald MD [address] [facility] [address] [place] [address] Social History Tobacco Use Types Packs/Day Years [...]
--- OUTSIDE RECORDS SUMMARY | 2024-06-04 20:40 | XMS_ITS | Encounter Summary ---
Author Organization [facility] Address [address] [place] [address]. [place] [address] Care Team Providers Care Construction Executive Name Role Phone Unavailable Primary Care Provider Unavailabl e Encounter Details Date Type Department Care Team (Latest Contact Info) Description 07/28/2020 Travel Social History Tobacco Use Types Packs/Day [...] COVID-19? No / Unsure 07/28/2020 9:42 AM GASTROENTEROLOGY NURSE documented as of this encounter Plan of Treatment Not on file documented as of this encounter Visit Diagnoses Not on filedocumented in this encounter
--- OUTSIDE RECORDS SUMMARY | 2024-06-04 23:11 | XMS_ITS | Clinical Summary ---
Author Organization [facility] Address [address] [place] [address]. [place], [place] [address] [place] [address] Care Team Providers Care Director Of Cardiology Service Line Name Role Phone Unavailable Primary Care Provider Unavailabl e Active Problems Problem Noted Date Diagnosed Date Systemic lupus erythematosus ([facility]) 0 10/11/2023 Immunizations Name Administration Dates Next [...] Comments Blood Pressure 124/76 07/21/2012 4:56 PM WANIGAN CLERK Pulse 90 07/21/2012 4:56 PM WANIGAN CLERK Temperature - - Respiratory Rate - - Oxygen Saturation - - Inhaled Oxygen Concentration - - Weight 108.4 kg (239 lb) 07/21/2012 4:56 PM WANIGAN CLERK Height - - Body Mass Index - [...]
--- OUTSIDE RECORDS SUMMARY | 2024-06-04 23:11 | XMS_ITS | Encounter Summary ---
Author Organization [facility] Address [address] [place] [address]. [place], [place] [address] [place] [address] Care Team Providers Care Blister Rust Eradicator Name Role Phone Unavailable Primary Care Provider Unavailabl e Encounter Details Date Type Department Care Team (Late st Contact Info) Description 07/25/2017 Abstract [facility] [address] [place], [place] [id number] Demetra Etienne PA [address] [place], [place] [id number] Social History Tobacco Use Types Packs/Day Years [...]
--- OUTSIDE RECORDS SUMMARY | 2024-06-04 23:11 | XMS_ITS | Encounter Summary ---
Author Organization [facility] Address [address] [place] [address]. [place], [place] [address] [place] [address] Care Team Providers Care Recorder Gravity Prospecting Name Role Phone Unavailable Primary Care Provider Unavailabl e Encounter Details Date Type Department Care Team (Latest Contact Info) Description 06/30/2020 12:58 PM RIPENING ROOM OPERATOR - 06/30/2020 11:59 PM RIPENING ROOM OPERATOR Hospital Encounter [facility] [address] [place] [address] Tom Ugarte MD [address] [place] [address] Discharge Disposition: Home or Self Care (Routine [...] COVID-19? No / Unsure 06/30/2020 12:55 PM RIPENING ROOM OPERATOR documented as of this encounter Plan of Treatment Not on file documented as of this encounter Visit Diagnoses Diagnosis Need for prophylactic vaccination against viral disease- Primary Need for prophylactic vaccination and inoculation against other viral diseases documented in this encounter
--- OUTSIDE RECORDS SUMMARY | 2024-06-04 23:11 | XMS_ITS | Encounter Summary ---
Author Organization [facility] Address [address] [place] [address]. [place], [place] [address] [place], [place] [address] Care Team Providers Care Identification Officer Name Role Phone Unavailable Primary Care Provider Unavailabl e Encounter Details Date Type Department Care Team (Late st Contact Info) Description 11/19/2005 Abstract [facility] [address] [place] [address] , Racheal Acevedo MD Social [...] COVID-19? No / Unsure 07/28/2020 9:42 AM CAREER CENTER ADVISOR documented as of this encounter Plan of Treatment Not on file documented as of this encounter Visit Diagnoses Not on filedocumented in this encounter
--- OUTSIDE RECORDS SUMMARY | 2024-06-04 23:11 | XMS_ITS | Encounter Summary ---
Author Organization [facility] Address [address] [place] [address]. [place], [place] [address] [place] [address] Care Team Providers Care Exercise Instruct Name Role Phone Unavailable Primary Care Provider Unavailabl e Encounter Details Date Type Department Care Team (Latest Contact Info) Description 07/28/2020 9:43 AM CHEMICAL DEPENDENCY ATTENDANT - 07/28/2020 11:59 PM CHEMICAL DEPENDENCY ATTENDANT Hospital Encounter [facility] [address] [place] [address] Tom Ugarte MD [address] [place] [address] Discharge Disposition: Home or Self Care (Routine [...] COVID-19? No / Unsure 07/28/2020 9:42 AM CHEMICAL DEPENDENCY ATTENDANT documented as of this encounter Plan of Treatment Not on file documented as of this encounter Visit Diagnoses Diagnosis Need for prophylactic vaccination against viral disease- Primary Need for prophylactic vaccination and inoculation against other viral diseases documented in this encounter
--- OUTSIDE RECORDS SUMMARY | 2024-06-04 23:11 | XMS_ITS | Encounter Summary ---
Author Organization [facility] Address [address] [place] [address]. [place] [address] Care Team Providers Care External Relations Director Name Role Phone Unavailable Primary Care Provider [...] COVID-19? No / Unsure 06/30/2020 12:55 PM QUILL LAYER documented as of this encounter Plan of Treatment Not on file documented as of this encounter Visit Diagnoses Not on filedocumented in this encounter
--- OUTSIDE RECORDS SUMMARY | 2024-06-04 23:11 | XMS_ITS | Encounter Summary ---
Author Organization [facility] Address [address] [place] [address]. [place], [place] [address] [place] [address] Care Team Providers Care Roll Reclaimer Name Role Phone Unavailable Primary Care Provider Unavailabl e Reason for Visit * Reason Onset Date Comments Orders 01/17/2024 Saphnelo IV orde r Encounter Details Date Type Department Care Team (Late st Contact Info) Description 01/17/2024 Telephone [facility] [address] [place] [address] Jordi Zhang MD [address] [place] [address] Orders (Saphnelo IV order) Social History Tobacco [...] office. [facility]. New location was to be in effect around Dec 2023 - given new # by another pt of [phone] and sent fax 01/09 to clarify the [...]
--- OUTSIDE RECORDS SUMMARY | 2024-06-04 23:11 | XMS_ITS | Encounter Summary ---
Author Organization [facility] Address [address] [place] [address]. [place] [address] [place] [address] Care Team Providers Care Glue Drier Operator Name Role Phone Unavailable Primary Care Provider Unavailabl e Encounter Details Date Type Department Care Team (Late st Contact Info) Description 10/15/2023 Orders Only [facility] [address] [place] [address] Erwin Macdonald MD [address] [facility] [address] [place] [address] Social History Tobacco Use Types Packs/Day Years [...]
--- OUTSIDE RECORDS SUMMARY | 2024-06-04 23:11 | XMS_ITS | Encounter Summary ---
Author Organization [facility] Address [address] [place] [address]. [place], [place] [address] [place] [address] Care Team Providers Care Semi Conductor Assembler Name Role Phone Unavailable Primary Care Provider Unavailabl e Encounter Details Date Type Department Care Team (Late st Contact Info) Description 06/28/2020 Orders Only [facility] Covid Vaccination Invitation [place] [phone] Pacheco Mckinney MD Social History Tobacco Use [...] COVID-19? No / Unsure 06/30/2020 12:55 PM PERSONAL SUPPORT WORKER documented as of this encounter Plan of Treatment Not on file documented as of this encounter Visit Diagnoses Not on filedocumented in this encounter
--- OUTSIDE RECORDS SUMMARY | 2024-06-04 23:11 | XMS_ITS | Encounter Summary ---
Author Organization [facility] Address [address] [place] [address]. [place] [address] [place] [address] Care Team Providers Care Chimney Sweeper Name Role Phone Unavailable Primary Care Provider Unavailabl e Encounter Details Date Type Department Care Team (Latest Contact Info) Description 07/21/2012 Abstract [facility] Flory Myrna L, DO [address] [place] [address] Social History Tobacco Use Types Packs/Day Years [...] Comments Blood Pressure 124/76 07/21/2012 4:56 PM CLERGY MEMBER Pulse 90 07/21/2012 4:56 PM CLERGY MEMBER Temperature - - Respiratory Rate - - Oxygen Saturation - - Inhaled Oxygen Concentration - - Weight 108.4 kg (239 lb) 07/21/2012 4:56 PM CLERGY MEMBER Height - - Body Mass Index - [...] *Influenza A and B In Office Done: [id number] Ordered; For: Fever (Symptom) (780.60); Ordered By: Tami Gilmore Perform: In Office; Last Updated By: Louann Fall 2. Ipratropium-Albuterol 0.5-2.5 (3) MG/3ML Inhalation Solution; USE 1 UNIT DOSE IN NEBULIZER 4 TIMES DAILY; To Be Done: [id number]; Status: HOLD FOR - Administration Ordered; For: Fever (Symptom) (780.60), Wheezing (Symptom) (786.07); Rx By: Tami Gilmore; Request Administration 3. Azithromycin 250 MG Oral Tablet; TAKE 2 TABLETS ON DAY 1 THEN TAKE 1 TABLET A DAY FOR 4 DAYS; Therapy: to (Evaluate:26Jul2012); Last Rx:[id number] Ordered; For: Wheezing (Symptom) (786.07); Rx By: Tami Gilmore; Dispense: 5 Days ; #:6 Tablet; Refill: 0; Send To: [facility] 435 4. Ibuprofen 600 MG Oral Tablet; TAKE 1 TABLET EVERY 6 HOURS NEEDED; Therapy: to (Evaluate:29Jul2012); Last Rx:[id number] Ordered; For: Wheezing (Symptom) (786.07); Rx By: Tami Gilmore; Dispense: 8 Days ; #:30 Tablet; Refill: 0; Send To: [facility] 435 5. Mucinex 600 MG Oral Tablet Extended Release 12 Hour; TAKE 2 TABLETS TWICE DAILY NEEDED; Therapy: to (Evaluate:31Jul2012); Last Rx:[id number] Ordered; For: Wheezing (Symptom) (786.07); Rx By: Tami Gilmore; Dispense: 10 Days ; #:40 Tablet Extended Release 12 Hour; Refill: 0; Record 6. PredniSONE 50 MG Oral Tablet; TAKE 1 TABLET DAILY DIRECTED; Therapy: to (Evaluate:26Jul2012); Last Rx:[id number] Ordered; For: Wheezing (Symptom) (786.07); Rx By: Tami Gilmore; Dispense: 5 Days ; #:5 Tablet; Refill: 0; Send To: [facility] If no better in 2-3 days see your primary doctor, use the ibuprofen for fever or body aches. Finishthe antibioitis as prescribed. Signatures Electronically signed by : Tami Gilmore NP; Jul 21 2012 5:26PM (Author) GY MEMBER documented in this encounter Plan of Treatment Not on file documented as of this encounter Visit Diagnoses Not on filedocumented in this encounter
--- OUTSIDE RECORDS SUMMARY | 2024-06-04 23:11 | XMS_ITS | Encounter Summary ---
Author Organization [facility] Address [address] [place] [address]. [place], [place] [address] [place] [address] Care Team Providers Care Blemish Remover Name Role Phone Unavailable Primary Care Provider Unavailabl e Encounter Details Date Type Department Care Team (Late st Contact Info) Description 10/11/2023 Therapy Plan [facility] [address] [place] [address] Jordi Zhang MD [address] [place] [address] Social History Tobacco Use Types Packs/Day Years [...] encounter Visit Diagnoses Diagnosis Systemic lupus erythematosus ([facility]/HCC [facility]/HCC)- Primary Systemic lupus erythematosus documented in this encounter
--- OUTSIDE RECORDS SUMMARY | 2024-06-04 23:11 | XMS_ITS | Encounter Summary ---
Author Organization [facility] Address [address] [place] [address]. [place] [address] Care Team Providers Care Hotbed Lever Operator Name Role Phone Unavailable Primary Care [...] COVID-19? No / Unsure 07/28/2020 9:42 AM WOUND CARE PHYSICIAN documented as of this encounter Plan of Treatment Not on file documented as of this encounter Visit Diagnoses Not on filedocumented in this encounter
== END 2024-05-28 09:53 | disposition home or self-care (01) ==
PROVIDERS: Emergency Provider Nurse Practitioner Family; PCP Physician Assistant Medical
DX: R30.0 Dysuria (principal); F17.210 Nicotine dependence, cigarettes, uncomplicated; M32.9 Systemic lupus erythematosus, unspecified; E03.9 Hypothyroidism, unspecified; M06.9 Rheumatoid arthritis, unspecified; M19.90 Unspecified osteoarthritis, unspecified site; M81.0 Age-related osteoporosis without current pathological fracture; J45.909 Unspecified asthma, uncomplicated
CPT/HCPCS: 81003; 87086; 99213; G0463

== ENCOUNTER 2024-08-01 08:45 | Emergency (ER) | payer MEDICARE, SELFPAY ==
--- NOTE | ~2024-08-01 | XR_ITS ---
EXAMINATION: XR chest 2V DATE: 08/01/2024 09:14 INDICATION: Cough. Shortness of breath. TECHNIQUE: Frontal and lateral views of the chest were obtained. COMPARISON: Chest CT 09/21/2020 FINDINGS: Calcified left lung nodules are consistent with old granulomatous disease. No pleural effus ion or pneumothorax. The heart size is normal. IMPRESSION: 1. No acute cardiopulmonary disease. Reviewed, dictated and finalized at location A. [employer] DEVELOPER
--- OUTSIDE RECORDS SUMMARY | 2024-08-01 08:47 | XMS_ITS | Clinical Summary ---
Author Organization [facility] Address [address] [place] [id number] Care Team Providers Care Legal Analyst Name Role Phone Unavailable Primary Care Provider Unavailabl e Active Problems Problem Noted Date Diagnosed Date Systemic lupus erythematosus ([facility]/HCC [facility]CC) 0 10/11/2023 Immunizations Name Administration Dates Next [...] Comments Blood Pressure 124/76 07/21/2012 4:56 PM LAN SPECIALIST Pulse 90 07/21/2012 4:56 PM LAN SPECIALIST Temperature - - Respiratory Rate - - Oxygen Saturation - - Inhaled Oxygen Concentration - - Weight 108.4 kg (239 lb) 07/21/2012 4:56 PM LAN SPECIALIST Height - - Body Mass Index - - Plan of Treatment Health Maintenance Due Date Last Done Comments Colorectal Cancer Screening Colonoscopy (10 Years) 1950 PHQ-2 (Physician [place] Ira) 1962 Hepatitis C 12/06/1969 DTaP, Tdap and Td Vaccines ( 1 - Tdap) 12/06/1970 Mammogram Screening 1991 Zoster Vaccines (1 of 2) 12/06/2001 Annual Medicare Wellness Visit 12/06/2016 Dexa Scan (General) 12/06/2016 Pneumococcal Vaccine: 65+ Years (1 of 1 - PCV) 12/06/2016 COVID-19 Vaccine (2023-2 5 season) 2024 07/28/2020, 06/30/2020 Influenza Adult (#1) 2024 PHQ-2 (Physician [place] Ira) 05/27/2024 RSV Immunization or 60+ Years (1 - 1-dose 75+ series) 12/06/2026 Meningococcal B Vaccine Aged Out No l onger eligible based on patient's age to complete this topic Meningococcal Vaccine Aged Out No fabian dev eligible based on patient's age to complete this topic RSV Immunizations Under 20 Months Aged Out No longer eligible b ased on patient's age to complete this topic Insurance MEDICARE
--- OUTSIDE RECORDS SUMMARY | 2024-08-01 08:47 | XMS_ITS | Encounter Summary ---
Author Organization [facility] Address [address] [place] [id number] Care Team Providers Care Budget Counselor Name Role Phone Unavailable Primary Care Provider Unavailabl e Encounter Details Date Type Department Care Team (Late st Contact Info) Description 10/11/2023 Therapy Plan [facility] [id number] [place] [address] Jordi Zhang MD [address] [place] [address] Social History Tobacco Use Types Packs/Day Years [...] encounter Visit Diagnoses Diagnosis Systemic lupus erythematosus ([facility]/HCC [facility]/HCC)- Primary Systemic lupus erythematosus documented in this encounter
[2024-08-01 09:01] VITALS: BP 153/96; PULSE 98; RESP 26; TEMP 36.8; O2SAT 98
[2024-08-01 09:17] LABS: EDCOVIDSCREEN Negative (Negative); EDINFLUASCREEN Negative (Negative); EDINFLUBSCREEN Negative (Negative)
--- NOTE | 2024-08-01 09:21 | ED.URI ---
HPI - URI/Sore Throat General Chief Complaint: Upper Respiratory Infection Stated Complaint: COLD LIKE Source: patient and family Mode of arrival: ambulatory Limitations: no limitations History of Present Illness HPI Narrative: 73-year-old female presents to [facility] with complaints of productive cough, bilateral ear itching, postnasal drainage, shortness of breath and wheezing for the past 2 days. Patient reports history of asthma. Patient reports that she has been using her nebulizers at home. Patient has not been using her inhaler. Patient is a smoker. Patient denies recent trauma. Patient denies sick contacts. Patient reports history of pneumonia and bronchitis in the past. Patient denies fever, body aches, chills, nausea, vomiting or diarrhea MD elicited complaint: cough, rhinorrhea and nasal congestion Pertinent past history: asthma Onset (ago): day(s) (2) Able to tolerate fluids by mouth: Yes Exacerbating factors: nothing Relieving factors: nothing Treatments prior to arrival: cold medicine Related Data Home Medications ?Medication ?Instructions ?Recorded ?Confirmed ?Last Taken ?Type folic acid 1 mg tablet 1 mg PO DAILY 03/11/24 06/26/24 Unknown History methotrexate sodium 2.5 mg tablet 2.5 mg PO WEEKLY 03/11/24 06/26/24 Unknown History Allergies Allergy/AdvReac Type Severity Reaction Status Date / Time No Known Allergies Allergy Verified 08/01/24 09:02 Review of Systems Constitutional: Constitutional: Denies chills, Denies fatigue, Denies fever(s) and Denies weakness ENT: Denies dizziness, Reports nasal congestion and Denies sore throat Respiratory: Respiratory: Reports chest congestion, Reports cough, Reports dyspnea and Reports wheezing Gastrointestinal: Gastrointestinal: Denies diarrhea, Denies nausea and Denies vomiting Integumentary/Breasts: Skin/Breast: Denies erythema and Denies rash Neurologic: Denies dizziness, Denies syncope and Denies headache(s) [facility] Past Medical History Medical History Hypothyroidism Knee osteoarthritis Hair loss Rheumatoid arthritis Arthritis Osteoporosis Rotator cuff tear, right Unintentional weight loss Lupus (systemic lupus erythematosus) Right rotator cuff tendonitis (~02/2020) Tendinitis of left rotator cuff Vitamin D deficiency Generalized osteoarthritis of multiple sites Asthma Surgical History Surgical History History of cholecystectomy Family History Family History Father Patient's father is Family history of malignant neoplasm of urinary bladder Sibling Cerebrovascular accident, Onset Age: 64 Mother Family history of throat cancer Other Arthritis Heart disease Hypertension Kidney disorder Neuropathy Social History Social History Smoking packs per day: 0.5 Smoking cigarettes per day: 10.0 Years smoked: 55 Smoking pack-years: 27.50 Smoking status: Current some day smoker Tobacco type: cigarettes Alcohol intake: never Substance use: never Substance use type: does not use Living arrangements: alone Occupation/Education: retired Gender identity (if verbalized by the patient): Female Spiritual care concerns: No Agree to blood products: Yes Comments At time of signature, I agree with nursing past medical, surgical, social and family history. There is no relevant family history pertinent to the presenting complaint. Exam Const: General: healthy appearing and no acute distress Nutritional Appearance: well nourished Orientation/consciousness: patient oriented x3 Limitations: no limitations HENMT: Head: normal to inspection Ears: external ears normal, TM's normal bilaterally and EAC's normal Face and sinus: normal facial exam Mouth: Yes Normal oral and palatal mucosa present and Yes moist mucous membranes Teeth and gingiva: dentition normal Throat: posterior oropharynx normal and uvula midline Eyes: Conjunctivae: conjunctivae normal Neck: Neck: normal visual inspection and no lymphadenopathy Resp: Effort & Inspection: normal respiratory effort, not labored and not tachypneic Auscultation: no rales, no rhonchi and wheezes expiratory wheezes, left lower and left upper Cardio: Rate: regular rate Rhythm: regular rhythm Heart sounds: no murmurs Skin: General skin exam: normal color Rashes: no rashes Neuro: General: patient oriented x3 and moves all extremities Cranial nerves: Yes Nystagmus not present Extrem: General: normal to inspection Psych: Affect: normal affect Attitude: cooperative Course Course Level of Care: Express Care Visit Vital Signs Vital signs: Vital Signs Temperature 36.8 C 08/01/24 09:01 Pulse Rate 98 08/01/24 09:01 Respiratory Rate 26 H 08/01/24 09:01 Blood Pressure 153/96 H 08/01/24 09:01 Pulse Oximetry 98 08/01/24 09:01 Oxygen Delivery Room Air 08/01/24 09:01 Temperature 36.8 C 08/01/24 09:01 Pulse Rate 98 08/01/24 09:01 Respiratory Rate 26 H 08/01/24 09:01 Blood Pressure 153/96 H 08/01/24 09:01 Pulse Oximetry 98 08/01/24 09:01 Oxygen Delivery Room Air 08/01/24 09:01 MDM - URI/Sore Throat MDM Narrative Medical decision making narrative: Discussed negative lab results with patient. Discussed chest x-ray results with patient and instructed to discuss calcified lung nodules with primary care provider. Encouraged patient to continue to use nebulizer and inhaler at home. Encouraged patient to take antibiotic and prednisone as prescribed. Instructed patient follow-up with primary care provider in 24-48 hours to re-evaluate symptoms into proceed to the emergency room if symptoms worsen. Instructed patient follow-up with primary care provider also to discuss elevated blood pressure. Differential Diagnosis Differential diagnosis: Likely sinusitis, viral infection and bronchitis Lab Data Labs: Lab Results 08/01/24 Range/Units 09:15 POC Influenza A Ag Negative (Negative) POC Influenza B Ag Negative (Negative) POC SARS CoV-2 Ag Negative (Negative) Imaging Data Radiologist's impression: Dipesh Russell 73 F 1950 Allergy/Adv: [place] [address] XRay Report Signed Patient: Dipesh Russell : 1950 MR#: [id number] Age: 73 Acct:[id number] Loc: [facility] ADM Date: 08/01/[address]: Ordering Physician: Ernestina Frank APRN Date of Service: 08/01/24 Procedure(s): XR chest 2V Accession Number(s): [id number] cc: Ernestina Frank APRN; Demetra Etienne EXAMINATION: XR chest 2V DATE: 08/01/2024 09:14 INDICATION: Cough. Shortness of breath. TECHNIQUE: Frontal and lateral views of the chest were obtained. COMPARISON: Chest CT 09/21/2020 FINDINGS: Calcified left lung nodules are consistent with old granulomatous disease. No pleural effusion or pneumothorax. The heart size is normal. IMPRESSION: 1. No acute cardiopulmonary disease. Reviewed, dictated and finalized at location A. [employer] Please be advised this is a medical document. It is intended for [id number] communication. It is written in medical language and may contain unfamiliar abbreviations or verbiage. Medical documents are intended to carry relevant information, facts as evident, and the clinical opinion of the practitioner at the time of the encounter. This report may have been done utilizing a voice recognition system. Attempts have been made to correct errors. However, there may be uncorrected grammatical, spelling, and recognition errors present. The file time of this note does not necessarily represent the time of service. Dictated By: Milton Naidu MD 08/01/24923 Signed By: <Electronically signed by Milton Naidu MD in OV> 08/01/24924 Critical Care Time Critical Care Time Critical Care Time: No Discharge Plan Discharge Clinical Impression: Upper respiratory infection Qualifiers: URI type: unspecified URI Qualified Code(s): J06.9 - Acute upper respiratory infection, unspecified Patient Disposition: Home, Self-Care Condition: Stable Instructions: Antibiotic Form, Upper Respiratory Infection (ED) Additional Instructions: Take Doxycycline and prednisone as prescribed Continue to use nebulizer and inhaler Follow-up with primary care provider in 24-48 hours re-evaluate symptoms Monitor symptoms closely and proceed to the emergency room if symptoms worsen Patient Language: Puerto [place]ican Prescriptions: New doxycycline monohydrate 100 mg capsule 100 mg PO BID 7 Days Qty: 14 0RF prednisone 20 mg tablet 40 mg PO DAILY 5 Days Qty: 10 0RF No Action methotrexate sodium 2.5 mg tablet 2.5 mg PO WEEKLY Rx Instructions: managed by RHEUM folic acid 1 mg tablet 1 mg PO DAILY albuterol sulfate [ProAir HFA] 90 mcg/actuation HFA aerosol inhaler 2 puff INHALATION Q4H PRN (Reason: Shortness Of Breath) Qty: 6.7 0RF hydroxychloroquine [Plaquenil] 200 mg tablet 400 mg PO DAILY Qty: 180 1RF prednisone 20 mg tablet 20 mg PO DAILY Qty: 5 0RF losartan 50 mg tablet 50 mg PO DAILY Qty: 90 1RF levothyroxine 112 mcg tablet 112 mcg PO DAILY Qty: 90 0RF Follow-up/Referrals: Demetra Etienne PA-C [Primary Care Provider] - Time of Disposition: 09:32
== END 2024-08-01 09:33 | disposition home or self-care (01) ==
PROVIDERS: Emergency Provider Nurse Practitioner Family; PCP Physician Assistant Medical
DX: J06.9 Acute upper respiratory infection, unspecified (principal); Z20.822 Contact with and (suspected) exposure to COVID-19; F17.210 Nicotine dependence, cigarettes, uncomplicated; E03.9 Hypothyroidism, unspecified; M06.9 Rheumatoid arthritis, unspecified; M81.0 Age-related osteoporosis without current pathological fracture; M32.9 Systemic lupus erythematosus, unspecified; J45.909 Unspecified asthma, uncomplicated; M15.9 Polyosteoarthritis, unspecified
CPT/HCPCS: 71046; 87426; 87804; 99213; G0463

== ENCOUNTER 2024-08-20 08:30 | Outpatient (RCR) | payer MEDICARE, SELFPAY ==
--- NOTE | 2024-05-22 15:30 | PTOPEVAL1 ---
Assessment and note entered by Alivia Bradshaw, PT Evaluation Information Assessment Status Evaluation Diagnosis unilat primary osteoarthritis, R and L knees ICD-10 Condition Codes (PT) Pain in right knee M25.561,Pain in left knee M25. 562,Difficulty Walking R26.2,Abnormalities of gait and mobility R26.9,Weakness R53.1 Onset years Subjective Information Pt reports is supposed to be getting injections in her knees. Pt is being sent to pain management to her shots for her knees as the orthos can't do it there. this past year has been the worst. Is on methotraxate, and hydroxychloroquin for her lupus and fibromyalgia. Was doing infusions through her RA doctor and really liked this. But her RA doctor has moved and no longer has one in network Has had some steroids in the past and this helped Greatest difficulty with stairs, getting up and down, and walking a long distances. States hast to take steps one at a time Reported Pain Level Pain Score 5: Self Report Assessment PT Clinical Summary Pt presents with complaints of esperanza knee pain that is chronic though it increased this last year without traumatic event. She demonstrates severe valgus, hyperextension, decreased strength, ROM and knee stability esperanza as well. All of which effect her gait and functional mobility, shown by her limited ability to participate in functional testing today. Pt will greatly benefit from physical therapy in order to improve these deficits, improve safety and functional independence with less pain. Plan of Care Interventions Electrical Stimulation,Gait Training,Hot Pack/Cold Pack,Manual Therapy,Neuro Re-education, Therapeutic Activities,Therapeutic Exercise,Self- Care/Home Management,Ultrasound Other Interventions bracing PT Services Indicated Yes Treatment Frequency and 1-2x weekly x 12 visits Duration These treatments will address the objective and functional deficits as defined above. The patient will be advanced safely and appropriately in order for the patient to progress towards his/her prior level of function. Additional exercises will be introduced and as well as a comprehensive home exercise program upon discharge, if needed, ?to ensure carryover of functional gains achieved in the clinic. This treatment plan has been reviewed and agreement upon by the patient.
--- NOTE | 2024-05-22 15:30 | OPREHPOC ---
Outpatient Therapy Plan of Care This is a Multidisciplinary Plan of Care that may contain components documented by all disciplines (PT, OT, and ST.) PT Problem 1 PT Problem #1 Knowledge Deficit PT Goal 1 Goal / Goal Update Pt will be independent in HEP Pt will verbalize understanding of diagnosis and prognosis Target Visit 10 PT Problem 2 PT Problem #2 Pain PT Goal 1 Goal / Goal Update Pt will report lowest pain rating at 0/10 to show improvement in overall discomfort Target Visit 10 PT Goal 2 Goal / Goal Update Pt will report greatest pain level at 7/10 or less to improve ADLs and activities Target Visit 20 PT Problem 3 PT Problem #3 Impaired Gait PT Goal 1 Goal / Goal Update Pt will demonstrate 200 ft in 2 in walk test for improved endurance and functional mobility Target Visit 10 PT Goal 2 Goal / Goal Update Pt will demonstrate 5x sit to stand testing with or without UEs in 20 seconds or less to demonstrate more functional mobility and balance PT Problem 4 PT Problem #4 Impaired Range of Motion PT Goal 1 Goal / Goal Update Daniel knees with demo passive ROM flexion 120 or greater Target Visit 20 PT Problem 5 PT Problem #5 Impaired Strength PT Goal 1 Goal / Goal Update Pt will demonstrate hamstring and quads strength of 4+/5 bli Target Visit 20
--- NOTE | 2024-06-05 16:04 | PCPTNOTE ---
Patient called & cancelled scheduled appointment this date due to weather conditions
--- NOTE | 2024-07-02 16:58 | PCPTNOTE ---
Patient did not show up to her appointment today, states she forgot the time. RR, PT
--- NOTE | 2024-07-09 16:40 | PCPTNOTE ---
Patient called & cancelled scheduled appointment this date due to illness
--- NOTE | 2024-07-13 13:12 | PCPTNOTE ---
Patient called & cancelled scheduled appointment this date due to illness.
--- NOTE | 2024-07-17 14:43 | PTOPPROG ---
Assessment and note entered by Alivia Bradshaw, PT Evaluation Information Assessment Status Progress Diagnosis unilat primary osteoarthritis, R and L knees ICD-10 Condition Codes (PT) Pain in right knee M25.561,Pain in left knee M25. 562,Difficulty Walking R26.2,Abnormalities of gait and mobility R26.9,Weakness R53.1 Onset years Subjective Information Pt reports feeling 65% better since starting physical therapy. Still having difficulty with stairs, walking long distances, and feels like 75% of the time difficulty with getting up and down from the chair. Assessment PT Clinical Summary Patient seen for 8 session for bilateral knee pain and weakness. Pt has improved bilateral knee strength, sit to stand mechanics, and gait endurance. Patient presents with difficulty of bilateral knee ROM and gait mechanics posture. Pt would benefit from continuing physical therapy to strengthen bilateral gluteal and lower abdominal muscles for improved balance and gait mechanics, to accomplish goals, and perform functional activities with decrease pain. Plan of Care Interventions Electrical Stimulation,Gait Training,Hot Pack/Cold Pack,Neuro Re-education,Therapeutic Activities, Therapeutic Exercise,Self-Care/Home Management Other Interventions bracing PT Services Indicated Yes Treatment Frequency and 2x/ week for 12 visits Duration These treatments will address the objective and functional deficits as defined above. The patient will be advanced safely and appropriately in order for the patient to progress towards his/her prior level of function. Additional exercises will be introduced and as well as a comprehensive home exercise program upon discharge, if needed, ?to ensure carryover of functional gains achieved in the clinic. This treatment plan has been reviewed and agreement upon by the patient.
== END 2024-08-20 23:59 | disposition home or self-care (01) ==
LOC: ANHHIPT 08:30
PROVIDERS: PCP Physician Assistant Medical; Visit Provider Physician Assistant Surgical
DX: M17.11 Unilateral primary osteoarthritis, right knee (principal); M17.12 Unilateral primary osteoarthritis, left knee
CPT/HCPCS: 97014; 97110; 97112; 97116; 97140; 97163; 97530; 97750; G0283

== ENCOUNTER 2024-08-27 14:21 | Outpatient (RCR) | payer MEDICARE, SELFPAY ==
--- NOTE | 2024-08-24 15:00 | PCPTNOTE ---
The treatment documented on this account is a continuation of the treatment documented on visit number [id number]. Please see documentation on both accounts to view progress. The Plan of Care has been transitioned and updated within the new V#. I have addressed and agree with the discipline specific Problems, Interventions, and Goals for the current certification period. Completed interventions, outcomes, and problems have been marked as Inactive to facilitate the copying of the Care plan routine for recurring accounts.
--- NOTE | 2024-08-27 15:27 | PTOPDC ---
Assessment and note entered by Alivia Bradshaw, PT Evaluation Information Assessment Status Discharge Diagnosis unilat primary osteoarthritis, R and L knees ICD-10 Condition Codes (PT) Pain in right knee M25.561,Pain in left knee M25. 562,Difficulty Walking R26.2,Abnormalities of gait and mobility R26.9,Weakness R53.1 Onset years Subjective Information Tries to concentrate on getting up and down from chairs. Will raise her head and scoots to end of the chair, is a lot easier and a lot better. Feels that therapy has helped. Stairs takes increased time, it's not easy but thinks some of this is fear of falling. Reports has access to a pool in the summer, has to loose 40 lbs before can have knee surgery. Walked this morning with her brace. Wears it probably 3 hours a day and tries to walk in the morning. States braces are helpful with walking. Tries to wear them twice a day Pt reports she can tell a difference in her daily routine. Reported Pain Level Pain Score 5: Self Report Assessment PT Clinical Summary Pt has attended therapy consistently for bilateral knee pain. She has severe valgus deformity bilaterally in addition to co-morbidities including Systemic Lupus Erythematosis, Rheumatoid arthritis, and Osteoarthritis. During her time in therapy, she shows improved knee ROM, improved strength, improved mobility with sit to stand and ambulation. She also has been provided bilat knee braces for support of valgus deformity and instability she is using with her high level activities. She reports she feels greatly improved and can see this in her day to day activities. she has met all goals with exception of lowest pain rating for her knees being 0/10 and her 5x sit to stand test did not decrease enough to meet the fci goal. However she appears to have plateaued with therapy at this time. Has been educated on continuing her HEP and other activities to assist in her goals for weight loss to prepare for knee replacements. Pt will thus be discharged from therapy for completion of plan of care. Plan of Care PT Services Indicated No
== END 2024-08-27 15:34 | disposition home or self-care (01) ==
LOC: ANHHIPT 14:21
PROVIDERS: PCP Physician Assistant Medical; Visit Provider Physician Assistant Surgical
DX: M17.11 Unilateral primary osteoarthritis, right knee (principal); M17.12 Unilateral primary osteoarthritis, left knee
CPT/HCPCS: 97110; 97750